=== PATIENT | male | born 1970 | race Hispanic/Latino ===

== ENCOUNTER 2016-12-29 20:50 | Emergency (ER) | payer SELFPAY ==
[2016-12-29 20:58] VITALS: BP 127/73; PULSE 70; RESP 18; TEMP 98.2
[2016-12-29] MEDS ORDERED: DiphenhydrAMINE 12.5 mg/5 ml LIQ UD (5 ml) ONE (21:14)
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
[2016-12-29 21:38] VITALS: O2SAT 100
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
== END 2016-12-29 22:00 | disposition home or self-care (01) ==
LOC: H.ER 20:50
DX: S50.02XA Contusion of left elbow, initial encounter (principal); S80.11XA Contusion of right lower leg, initial encounter; Y93.55 Activity, bike riding; Y92.410 Unspecified street and highway as the place of occurrence of the external cause